=== PATIENT | male | born 1955 | race Caucasian/White ===

== ENCOUNTER → 2020-02-15 | Outpatient (CLI) | payer MEDICAID ==
[~2020-02-15] MED LIST: AGGRENOX ER 251 CER PO; BENICAR 20MG TA20 MG PO; CRESTOR 10MG10 MG PO; FLEXERIL 1010 MG/TAB PO; GLUCOTROL XL5 MG/TAB PO; JANUVIA 100MG100 MG PO; MICARDIS40 MG PO; MICARDIS80 MG PO; NO HOME MEDICATIONS; NORCO 325 MG-51 TAB PO
== END ==
LOC: ZCOL.LAB 15:00
DX: S91.309A Unspecified open wound, unspecified foot, initial encounter (principal)